=== PATIENT | male | born 1955 | race Caucasian/White ===

== ENCOUNTER 2021-09-21 18:50 | Emergency (ER) | payer MEDICARE, OTHER, SELFPAY ==
[2021-09-21 18:56] VITALS: BP 160/83; PULSE 75; RESP 16; TEMP 36.4; O2SAT 98; BMI 29.6
--- NOTE | 2021-09-21 19:04 | ED_ITS ---
Documented by User: TARI Varma 09/21/21 19:59 HPI - Extremity Problem General: Chief complaint: Extremity Injury, Lower Stated complaint: left foot injury Time Seen by Provider: 09/21/21 19:04 History of Present Illness: 66-year-old male patient comes in today for complaints of injury to the left ankle. Patient reports walking out in the yard and stepped in a hole causing his ankle to turn feeling a pop in the ankle and in the proximal tib-fib. No obvious deformity is noted. Patient does have swelling to the ankle. Patient is able to lift leg off the table without difficulty. Patient does not tolerate weightbearing. Patient appears in moderate pain. Patient appears nontoxic. Review of Systems General: Reports: 10 or more systems reviewed and unremarkable except in HPI and below Musc: Reports: extremity pain and extremity swelling Physical Exam Const: COMMON NORMALS: alert Resp: COMMON NORMALS: normal respiratory effort Cardio: COMMON NORMALS: regular rate RATE: regular rate Extremity: LEFT LOWER EXTREMITY: Yes lower leg (Tenderness proximal lower leg) Left lower leg: Yes inspection, Yes palpation and Yes neurovascular exam and Yes ankle joint (Bilateral swelling and tenderness moderate) Left ankle: Yes inspection, Yes palpation, Yes ROM (Unable to assess due to pain) and Yes neurovascular exam Neuro: SENSORIUM/ORIENTATION: Yes alert Course ED course: 1952, reviewed x-ray with Dr. Dick who agreed with plan for splinting and patient to follow-up with orthopedic surgeon for further treatment. Vital Signs: Vital signs: Vital Signs Temperature 97.6 F 09/21/21 18:56 Pulse Rate 75 09/21/21 18:56 Respiratory Rate 16 09/21/21 18:56 Blood Pressure 160/83 09/21/21 18:56 Pulse Oximetry 98 09/21/21 18:56 Oxygen Delivery Me thod 09/21/21 18:56 MDM - Extremity (Nontraumatic) Medical Decision Making Patient comes in today for injury to the left lower leg. Patient reports stepping in a hole and rolling his ankle and feeling a pop. On exam there is some swelling to bilateral ankle areas. Distal pulses and sensation are intact. Differential diagnosis includes but not limited to fracture, sprain, dislocation. X-ray of the tib-fib and the ankle noted a transverse fracture of the distal tibia going into the joint. Reviewed x-ray with patient and with Dr. Dick who agreed to plan for splinting and follow-up with orthopedic surgeon. Patient reported understanding of care plan and need for follow-up or return to the ER for worsening symptoms. Lab Data Radiology Impressions Ankle X-Ray 09/21/21 19:05 IMPRESSION: 1. Distal tibial metaphyseal oblique minimally displaced fracture. 2. Distal Achilles tendon degenerative calcification. 3. Small calcified heel spur. 4. Mild soft tissue swelling about the ankle. Tibia/Fibula X-Ray 09/21/21 19:05 IMPRESSION: No acute findings. Discharge Plan Discharge Patient Disposition: Home Clinical Impression: Fracture of distal end of left tibia Qualifiers: Encounter type: initial encounter Fracture type: closed Fracture morphology: other fracture Qualified Code(s): S82.392A - Other fracture of lower end of left tibia, initial encounter for closed fracture Condition: Stable Prescriptions: New hydrocodone-acetaminophen 5-325 mg tablet 1 tab PO Q6H PRN (Reason: pain (scale score 7-10)) Qty: 14 0RF Discharge Orders: Discharge ED (Routine); Ordered 09/21/21 Ordered By: Carlos Gonzalez Discharge Diet: Usual diet Discharge Activity: Increase activity as tolerated Patient Instructions: Ankle Fracture (ED) Activity Restrictions/Additional Instructions: Keep splint clean and dry. Use crutches and maintain nonweightbearing to left lower extremity. Use acetaminophen and ibuprofen to control pain. Use hydrocodone for severe pain. Drink plenty of water with medications. Case management will contact you Wednesday or Wednesday with follow-up appointment with orthopedist. The orthopedist follow-up appointment should be within the next week. Try to elevate extremity is much as possible to help control swelling. Use ice to the leg for further comfort. Return to the ER for new concerns or worsening symptoms such as increased redness and swelling, uncontrolled pain, fever greater than 100.4. Coding Level of Care Code ED Rivet Machine Operator for [place] Fwd Exam Expanded Problem Focused Documented by User: Jai Dick MD 09/21/21 20:35 HPI - Extremity Problem General: Chief complaint: Extremity Injury, Lower Stated complaint: left foot injury Time Seen by Provider: 09/21/21 19:04 Course Vital Signs: Vital signs: Vital Signs Temperature 97.6 F 09/21/21 18:56 Pulse Rate 75 09/21/21 18:56 Respiratory Rate 16 09/21/21 18:56 Blood Pressure 160/83 09/21/21 18:56 Pulse Oximetry 98 09/21/21 18:56 Oxygen Delivery Me thod 09/21/21 18:56 MDM - Extremity (Nontraumatic) Medical Decision Making Patient comes in today for injury to the left lower leg. Patient reports stepping in a hole and rolling his ankle and feeling a pop. On exam there is some swelling to bilateral ankle areas. Distal pulses and sensation are intact. Differential diagnosis includes but not limited to fracture, sprain, dislocation. X-ray of the tib-fib and the ankle noted a transverse fracture of the distal tibia going into the joint. Reviewed x-ray with patient and with Dr. Dick who agreed to plan for splinting and follow-up with orthopedic surgeon. Patient reported understanding of care plan and need for follow-up or return to the ER for worsening symptoms. I reviewed this case along with the x-ray image with midlevel. Did recommend splinting and orthopedic follow-up he does not require reduction. Lab Data Radiology Impressions Ankle X-Ray 09/21/21 19:05 IMPRESSION: 1. Distal tibial metaphyseal oblique minimally displaced fracture. 2. Distal Achilles tendon degenerative calcification. 3. Small calcified heel spur. 4. Mild soft tissue swelling about the ankle. Tibia/Fibula X-Ray 09/21/21 19:05 IMPRESSION: No acute findings. Discharge Plan Discharge Patient Disposition: Home Clinical Impression: Fracture of distal end of left tibia Qualifiers: Encounter type: initial encounter Fracture type: closed Fracture morphology: other fracture Qualified Code(s): S82.392A - Other fracture of lower end of left tibia, initial encounter for closed fracture Condition: Stable Prescriptions: New hydrocodone-acetaminophen 5-325 mg tablet 1 tab PO Q6H PRN (Reason: pain (scale score 7-10)) Qty: 14 0RF Discharge Orders: Discharge ED (Routine); Ordered 09/21/21 Ordered By: Carlos Gonzalez Discharge Diet: Usual diet Discharge Activity: Increase activity as tolerated Patient Instructions: Ankle Fracture (ED) Activity Restrictions/Additional Instructions: Keep splint clean and dry. Use crutches and maintain nonweightbearing to left lower extremity. Use acetaminophen and ibuprofen to control pain. Use hydrocodone for severe pain. Drink plenty of water with medications. Case management will contact you Wednesday or Wednesday with follow-up appointment with orthopedist. The orthopedist follow-up appointment should be within the next week. Try to elevate extremity is much as possible to help control swelling. Use ice to the leg for further comfort. Return to the ER for new concerns or worsening symptoms such as increased redness and swelling, uncontrolled pain, fever greater than 100.4. Coding Level of Care Code ED Rivet Machine Operator for [place] Fwd Exam Expanded Problem Focused
--- NOTE | 2021-09-21 19:05 | XRR_ITS ---
PROCEDURE INFORMATION: Exam: XR Left Tibia and Fibula Exam date and time: 09/21/2021 7:16 PM Age: 66 years old Clinical indication: Injury or trauma; Fall; Blunt trauma; Lower leg; Left TECHNIQUE: Imaging protocol: Radiologic exam of the Left tibia and fibula. Views: 2 views. COMPARISON: No relevant prior studies available. FINDINGS: Bones/joints: Normal. Soft tissues: Normal. XR/XR tibia fibula LT 2V [id number] IMPRESSION: No acute findings.
--- NOTE | 2021-09-21 19:05 | XRR_ITS ---
PROCEDURE INFORMATION: Exam: XR Left Ankle Exam date and time: 09/21/2021 7:19 PM Age: 66 years old Clinical indication: Injury or trauma; Fall; Blunt trauma; Ankle; Left TECHNIQUE: Imaging protocol: Radiologic exam of the Left ankle. Views: 3 or more views. COMPARISON: CR XR tibia fibula LT 2V [id number] 09/21/2021 7:16 PM FINDINGS: Bones/joints: Distal tibial metaphyseal oblique minimally displaced fracture. Distal Achilles tendon degenerative calcification. Small calcified heel spur. Soft tissues: Mild soft tissue swelling about the ankle. XR/XR ankle LT min 3V* [id number] IMPRESSION: 1. Distal tibial metaphyseal oblique minimally displaced fracture. 2. Distal Achilles tendon degenerative calcification. 3. Small calcified heel spur. 4. Mild soft tissue swelling about the ankle.
[2021-09-21] MEDS: HYDROcodone-acetaminophen 10-325 mg Tablet 1 TAB PO (19:09)
--- NOTE | 2021-09-21 20:35 | PC.NURSE ---
Applied posterior splint to left lower leg, pt requested hydrocodone to take home for tonight until pharmacy can fill prescription tomorrow, ntfd provider of request
[2021-09-21] MEDS: HYDROcodone-acetaminophen 7.5-325 mg Tablet 1 TAB PO (20:40)
--- NOTE | 2021-09-21 20:40 | PC.NURSE ---
1 [place] 7.5/325 given to patient to take home for pain control tonight
--- NOTE | 2021-09-24 08:34 | DCPLANNER ---
Addendum entered by Chasity Vila 09/26/21 13:10: Patient had a follow up appointment scheduled for 09.23.[address] Zhang at ortho - patient did attend appointment. Original Note: alterations manager had message to schedule a followup appointment for patient with ortho. alterations manager sent patients information to the front office staff at ortho. Patients information will be printed and reviewed. Clinic will call patient with appointment information.
== END 2021-09-21 20:43 | disposition home or self-care (01) ==
PROVIDERS: Emergency Provider Nurse Practitioner Family
DX: S82.392A Other fracture of lower end of left tibia, initial encounter for closed fracture (principal); X50.1XXA Overexertion from prolonged static or awkward postures, initial encounter
CPT/HCPCS: 29515; 73590; 73610; 99283; E0114

== ENCOUNTER 2021-09-23 16:08 | Outpatient (CLI) | payer MEDICARE, OTHER, SELFPAY | END 2021-09-23 16:09 | disposition home or self-care (01) | LOC: SPT 16:09 | PROVIDERS: Visit Provider Podiatrist Foot & Ankle Surgery | DX: Z46.89 Encounter for fitting and adjustment of other specified devices (principal); S82.872D Displaced pilon fracture of left tibia, subsequent encounter for closed fracture with routine healing; X58.XXXD Exposure to other specified factors, subsequent encounter; S82.875A Nondisplaced pilon fracture of left tibia, initial encounter for closed fracture; W19.XXXA Unspecified fall, initial encounter; M25.572 Pain in left ankle and joints of left foot | CPT/HCPCS: 97760; 99204; L4361 ==

== ENCOUNTER 2021-09-24 08:05 | Outpatient (CLI) | payer MEDICARE, OTHER, SELFPAY ==
--- NOTE | 2021-09-24 08:30 | CT_ITS ---
WS: [id number] CT LEFT ANKLE, NONCONTRAST, 3-D IMAGING. HISTORY: surgical planning Technique: All CT scans at [facility] use at least one of these dose optimization techniques: automated exposure control; mA and/or kV adjustment per patient size (includes targeted exams where dose is matched to clinical indication); or iterative reconstruction. DLP: 171.32 mGy.cm COMPARISON: LEFT ankle radiographs 09/21/2021 Mildly oblique, nondisplaced fracture extends 6.8 cm from the distal tibia to the tibiotalar articula r surface. Fracture extends along the medial posterior distal tibial diaphysis and extends slightly o blique to the midline of the tibia. No widening of the ankle mortise. There is an additional nondispl aced posterior malleolus fracture. There is a small loose body measuring 5 mm in the posterior tibial fibular articulation. This does appear to be acute fracture fragment. There are additional more staff electronic warfare officer dagoberto appearing well-circumscribed osseous fragments at the medial malleolus. There is probably an reid tional transverse fracture at the medial malleolus which is nondisplaced. The distal fibula is intact. No talar or calcaneal fracture. Posterior calcaneal process is normal. H eavy calcification in the distal Achilles tendon and also at the site of the plantar aponeurosis. CT/CT ankle LT wo con* [id number] IMPRESSION: 1. Oblique, nondisplaced distal tibial fracture extends to the tibiotalar join t space. 2. Additional nondisplaced posterior malleolus fracture. 3. Small 5 mm loose body associated with the posterior malleolus fracture. Fra gment extends into the adjacent tibiofibular articulation. 4. Additional nondisplaced oblique transverse fracture medial malleolus. There are additional well circumscribed remote fractures at the medial malleolus als o.
== END 2021-09-24 08:06 | disposition home or self-care (01) ==
LOC: RAD 08:05
PROVIDERS: PCP Family Medicine; Visit Provider Podiatrist Foot & Ankle Surgery
DX: S82.55XA Nondisplaced fracture of medial malleolus of left tibia, initial encounter for closed fracture (principal); X58.XXXA Exposure to other specified factors, initial encounter
CPT/HCPCS: 73700

== ENCOUNTER 2021-09-26 07:18 | Day surgery (SDC) | payer MEDICARE, OTHER, SELFPAY ==
[2021-09-25 15:10] VITALS: BMI 29.6
[2021-09-26] VITALS (7 sets, daily range): BP systolic 108–149; BP diastolic 67–79; PULSE 65–85; RESP 12–20; TEMP 36.3–36.7; O2SAT 93–97
--- NOTE | 2021-09-26 | SCC_ITS ---
Procedure done: Open reduction internal fixation left pilon fracture. CPT code 24441 8 seconds of fluoroscopic guidance, for a cumulative dose of 0.180 mGy, was provided to Dr. Zhang by the radiology department. C-arm images of the LEFT ankle were saved for the patient's permanent record. [facility]
--- NOTE | 2021-09-26 06:32 | W.PM.OPSUD ---
Surgery/Procedure H&P Update DATE OF PROCEDURE: September 26, 2021 DATE H&P PERFORMED: 09/23/21 CHANGES TO PREVIOUS DOCUMENTATION: None PREOP DIAGNOSIS: Left pilon fracture PRIMARY INDICATION FOR PROCEDURE: Left pilon fracture PLANNED PROCEDURE: Operation Date: 09/26/21 08:50 Proposed Procedures p Open reduction internal fixation left pilon fracture 34761,S82.872(Left) - Marcos Zhang DPM
--- NOTE | 2021-09-26 07:50 | P.ANESASSM_ITS ---
Pre-Anesthetic Assessment Height/Weight: Height 1.73 m Weight 88.451 kg Temp Pulse Resp BP Pulse Ox O2 Del Method 97.3 F L 65 16 149/68 97 09/26/21 07:38 09/26/21 07:38 09/26/21 07:38 09/26/21 07:38 09/26/21 07:38 09/26/21 07:38 Preop Diagnosis: Left pilon fracture Operation Date: 09/26/21 08:50 Proposed Procedures p Open reduction internal fixation left pilon fracture 05963,S82.872(Left) - Marcos Zhang DPM Familial anesthetic complications: None Was Beta Yousuf taken within 24 hours: Yes Was Clonidine taken within 24 hours: N/A Last intake: Intake Last Liquid Date 09/25/21 Last Liquid Time 10:00 Last Solid Date 09/25/21 Last Solid Time 19:00 Social No alcohol and No tobacco Exam alert, oriented x 3, clear to auscultation bilaterally and regular rate & rhythm Airway Mallampati: Class III Dentition: full CV/HEM Hypertension Metabolic Diabetes Mellitus and Hyperlipidemia Neuropsych cognitive dysfunction per patient's Anesthetic Plan ASA status: 3 Anesthesia: General and Regional (specify below) (popliteal) Risk of > 500 ml blood loss (7ml/kg in children): No Medications/Allergies Home Medications Medication Instructions Recorded Confirmed Last Taken Type hydrocodone 5 mg-acetaminophen 325 1 tab PO Q6H PRN pain (scale score 09/21/21 09/25/21 Unknown Rx mg tablet 7-10) #14 tabs camboot to left #1 ea 09/23/21 09/23/21 Unknown Rx hydrocodone 7.5 mg-acetaminophen 1 tab PO Q4H PRN pain 7 days #20 09/23/21 09/25/21 Unknown Rx 325 mg tablet tabs carvedilol 25 mg tablet 25 mg PO BID 09/25/21 09/26/21 09/26/21 History duloxetine 60 mg capsule,delayed 60 mg PO BID 09/25/21 09/26/21 09/25/21 History release dutasteride 0.5 mg capsule 0.5 mg PO DAILY 09/25/21 09/26/21 09/25/21 History (Avodart) empagliflozin 25 mg tablet 25 mg PO DAILY 09/25/21 09/26/21 09/25/21 History (Jardiance) glipizide 10 mg tablet 10 mg PO BID 09/25/21 09/26/21 09/25/21 History hydroxyzine pamoate 25 mg capsule 25 - 75 mg PO DAILY PRN Anxiety 09/25/21 09/26/21 09/25/21 History pravastatin 40 mg tablet 40 mg PO DAILY 09/25/21 09/25/21 Unknown History tamsulosin 0.4 mg capsule 0.4 mg PO BID 09/25/21 09/25/21 Unknown History oxycodone-acetaminophen 10 mg-325 1 tab PO Q6H PRN pain 7 days #28 09/26/21 Unknown Rx mg tablet (Percocet) tabs Allergies Allergy/AdvReac Type Severity Reaction Status Date / Time metoclopramide [From Reglan] Allergy ADR-Anxiety Verified 09/25/21 14:59 PFS Anesthesia Social History (Updated 09/25/21 @ 14:56 by Lakshmi Montague) Smoking and tobacco status: former smoker Quit status (tobacco): has quit using tobacco Second hand smoke exposure: No Smoking risk assessment/counseling performed?: No Data Anesthesia Cardiac Studies: 2 No Data to Display
[2021-09-26 07:51] LABS: Glucose Point of Care 139 mg/dL (70-110)
[2021-09-26] MEDS: CELEcoxib 200 mg Capsule 400 MG PO (07:55)
[2021-09-26] MEDS: gabapentin 300 mg Capsule PO (07:55)
[2021-09-26] MEDS: sodium chloride 0.9% 1,000 ML 30 ML IV (07:56)
--- NOTE | 2021-09-26 08:10 | ANES.PROC ---
Anesthesia Procedures Procedure/Date: 09/26/21 Nerve Block ^: Nerve Block 1: Main Anesthesia: general anesthesia Time Out Performed: Yes Consent: requested by attending/covering physician, from patient, risks and benefits reviewed and patient agrees to proceed Nerve block location: popliteal (L) Anesthesia monitors applied: pulse oximetry, EKG and BP cuff Nerve block position: supine Anesthetic Used: ropivicaine 0.5% (30 ml) and with decadron (4 mg) Ultrasound used to: recognize landmarks Nerve Stimulator Used?: No Interscalene/Femoral BLK: 4 stimuplex 21 g needle used for position and inplane approach, visualize local anesthetic spread and no vascular puncture identified Injection: neg aspiration of heme Patient Tolerated Procedure: well and no complications Complications: none
--- NOTE | 2021-09-26 08:44 | PM.OP ---
Operative Report Date of procedure: September 26, 2021 Pre-op diagnosis: Left pilon fracture of the distal tibia Post-op diagnosis: Left pilon fracture of the distal tibia Procedure done: Open reduction internal fixation left pilon fracture. CPT code 83968 Implants: [place] 28 Specimens removed/disposition: 0 Pathology: 0 Surgeon: Marocs Zhang D.P.M. 51 IV fluids: 0 Urine output: 0 Complications: None Brief History: Patient fell while shoveling dirt at home date of injury 09/21/2021. CT scan significant for comminuted fracture of the distal tibial plafond and and oblique intra-articular fracture through the distal tibia consistent with pilon fracture. Given the extent of fracture pattern and comminution recommended stabilization with open reduction internal fixation of the left distal tibia. Risks include but are not limited to pain, bleeding, numbness, infection, hardware irritation, hardware failure, delayed union, malunion and nonunion. There is also a high potential for posttraumatic arthritis as a result of this intra-articular injury. Patient may require advanced bracing and further surgical invention down the road. Also risk associate with anesthesia, heart attack, stroke, and deep vein thrombosis. Patient is agreeable wishes to proceed. Has been n.p.o. since midnight. Popliteal block performed per anesthesia preoperatively. Initialed left lower extremity preoperatively, informed consent by patient and myself. Patient's is present. No guarantees written, expressed or implied. Procedure: Under mild sedation the patient was brought to the operating room and placed on the operating table in supine position. A timeout was performed. Anesthesia was then administered by the anesthesia service. Popliteal block was performed per anesthesia preoperatively this was greatly appreciated. Saphenous nerve block preoperative with 3 cc of 0.25% Marcaine plain also performed by myself. Well-padded pneumatic tourniquet applied to the left high thigh. The left lower extremity was then scrubbed, prepped and draped utilizing normal aseptic technique. The left foot and ankle were exanguinated with a Esmarch bandage and the tourniquet inflated to 250 mmHg. Attention was directed to the medial aspect of the left medial malleolus and distal tibia where a linear longitudinal incision was was made through skin with #15 blade. Dissection carried down through subcutaneous tissue to the layer of periosteum utilizing a combination of sharp and blunt technique. Care was taken to retract and preserve neurovascular and tendinous structures. All bleeders were ligated and cauterized as necessary. Periosteal incision was made followed by curettage of the fracture fragment of its hematoma this was flushed with saline solution followed by reduction and fixation utilizing standard AO technique employing a [place] 28 distal medial anatomic plate with locking screws. The ankle mortise was noted to be congruent and the tibial plafond congruent with intraoperative fluoroscopy in all 3 standard views and excellent placement of hardware not violating the joint. Intraoperatively the fracture was stabilized and noted to be excellent with great bone to hardware interface. The incision was then flushed with copious amounts of sterile saline solution. Smooth range of motion of the ankle mortise was appreciated intraoperatively without crepitus. The incision was then closed in a layered fashion with 2-0 Vicryl at periosteum. 3-0 Vicryl at subcutaneous tissue and skin candelario. The incision was then dressed with Adaptic, sterile 4 x 4, Kerlix and Clifford wrap followed by application of cam boot. Tourniquet was deflated and a prompt hyperemic response was noted to the distal digits of the left foot. Patient tolerated the procedure and anesthesia well and was transferred to the PACU with vital signs stable and vascular status intact. Following a period of postoperative monitoring he will be discharged home is to remain strict nonweightbearing, he is utilizing crutches and a wheelchair. He is to remain immobilized with a cam boot at all times. He is to keep the surgical dressings clean dry and intact until his follow-up visit in podiatry clinic next Wednesday. Advised once daily 81 mg aspirin to be taken starting the morning after surgery to help potentially reduce the risk of deep vein thrombosis. He was provided a prescription for oxycodone to be taken judiciously as needed for pain every 4-6 hours.
--- NOTE | 2021-09-26 08:47 | XR_ITS ---
WS: [id number] XR foot LT min 3V* [id number] REASON FOR EXAM: post op FINDINGS: Mild narrowing of the first MP joint space with mild subchondral sclerosis and osteophytosis. Remainder of the joints of the left forefoot are unremarkable. No fracture or periosteal reaction of the phalanges or metatarsals. The Lisfranc, intertarsal, and Lisfranc joints demonstrate mild narrowing and subchondral sclerosis. No focal bone abnormality in the midfoot. The subtalar joint is intact and without significant abnormality. The talus and calcaneus are intact. Large calcaneal Achilles and plantar enthesophytes. 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 No acute abnormality identifie d.
[2021-09-26] MEDS: ceFAZolin 2,000 MG in sodium chloride 0.9% (plus) 50 ML 100 MG IV (08:56)
--- NOTE | 2021-09-26 14:18 | ANE.PACU2 ---
Inpatient post-anesthesia follow up: Airway intact: Yes Vital signs: Temperature 97.9 F Pulse Rate 85 Respiratory Rate 20 Blood Pressure 138/79 Pulse Oximetry 93 Oxygen Delivery Me thod Room Air Oxygen Flow Rate 6 Fraction of Inspir ed Oxygen Hydration adequate: Yes Nausea and vomiting: No Pain level: 1 Mental status: Baseline
== END 2021-09-26 11:30 | disposition home or self-care (01) ==
LOC: OR 07:26
PROVIDERS: PCP Family Medicine; Visit Provider Podiatrist Foot & Ankle Surgery
PROC: (CPT 27827; principal; 2021-09-26 08:40)
DX: S82.872A Displaced pilon fracture of left tibia, initial encounter for closed fracture (principal); W01.0XXA Fall on same level from slipping, tripping and stumbling without subsequent striking against object, initial encounter; I10 Essential (primary) hypertension; E11.9 Type 2 diabetes mellitus without complications; E78.5 Hyperlipidemia, unspecified; Z87.891 Personal history of nicotine dependence
CPT/HCPCS: 27827; 36416; 73610; 73630; 76000; 82962; C1713; J1100; J2405; J2704; J2795; J3010; J3490; J7030

== ENCOUNTER → 2021-10-03 08:56 | Outpatient (BNVA) | payer MEDICARE, OTHER, SELFPAY | PROVIDERS: PCP Family Medicine; Visit Provider Podiatrist Foot & Ankle Surgery | DX: Z98.890 Other specified postprocedural states (principal) | CPT/HCPCS: 73590 ==

== ENCOUNTER → 2021-10-09 14:00 | Outpatient (BNVA) | payer MEDICARE, OTHER, SELFPAY | PROVIDERS: PCP Family Medicine; Visit Provider Podiatrist Foot & Ankle Surgery | DX: Z98.890 Other specified postprocedural states (principal) | CPT/HCPCS: 29515; 73590; 99024 ==

== ENCOUNTER → 2021-10-16 10:32 | Outpatient (BNVA) | payer MEDICARE, OTHER, SELFPAY | PROVIDERS: PCP Family Medicine; Visit Provider Podiatrist Foot & Ankle Surgery | DX: Z98.890 Other specified postprocedural states (principal); S82.872A Displaced pilon fracture of left tibia, initial encounter for closed fracture; X58.XXXA Exposure to other specified factors, initial encounter | CPT/HCPCS: 29580; 99024 ==

== ENCOUNTER → 2021-10-23 16:05 | Outpatient (BNVA) | payer MEDICARE, OTHER, SELFPAY | PROVIDERS: PCP Family Medicine; Visit Provider Podiatrist Foot & Ankle Surgery | DX: Z98.890 Other specified postprocedural states (principal); S82.392D Other fracture of lower end of left tibia, subsequent encounter for closed fracture with routine healing; W01.0XXD Fall on same level from slipping, tripping and stumbling without subsequent striking against object, subsequent encounter | CPT/HCPCS: 99024 ==

== ENCOUNTER → 2021-11-06 14:00 | Outpatient (BNVA) | payer MEDICARE, OTHER, SELFPAY | PROVIDERS: PCP Family Medicine; Visit Provider Podiatrist Foot & Ankle Surgery | DX: Z98.890 Other specified postprocedural states (principal); S82.392D Other fracture of lower end of left tibia, subsequent encounter for closed fracture with routine healing; X58.XXXD Exposure to other specified factors, subsequent encounter | CPT/HCPCS: 73610; 99024 ==

== ENCOUNTER → 2021-11-11 08:26 | Outpatient (BNVA) | payer MEDICARE, OTHER, SELFPAY | PROVIDERS: PCP Family Medicine; Visit Provider Family Medicine | DX: E78.5 Hyperlipidemia, unspecified (principal); I10 Essential (primary) hypertension; E11.9 Type 2 diabetes mellitus without complications | CPT/HCPCS: 80053; 80061; 83036; 85025 ==

== ENCOUNTER 2021-11-19 07:34 | Outpatient (RCR) | payer MEDICARE, OTHER, SELFPAY | END 2021-12-15 23:59 | disposition home or self-care (01) | LOC: SPT 07:34 | PROVIDERS: PCP Family Medicine; Visit Provider Podiatrist Foot & Ankle Surgery | DX: S82.872D Displaced pilon fracture of left tibia, subsequent encounter for closed fracture with routine healing (principal); X58.XXXD Exposure to other specified factors, subsequent encounter | CPT/HCPCS: 97110; 97161 ==

== ENCOUNTER → 2021-11-20 14:47 | Outpatient (BNVA) | payer MEDICARE, OTHER, SELFPAY | PROVIDERS: PCP Family Medicine; Visit Provider Podiatrist Foot & Ankle Surgery | DX: Z98.890 Other specified postprocedural states (principal); S82.392D Other fracture of lower end of left tibia, subsequent encounter for closed fracture with routine healing; X58.XXXD Exposure to other specified factors, subsequent encounter; E11.9 Type 2 diabetes mellitus without complications; M25.572 Pain in left ankle and joints of left foot | CPT/HCPCS: 73610; 99024 ==

== ENCOUNTER → 2021-12-11 13:29 | Outpatient (BNVA) | payer MEDICARE, OTHER, SELFPAY | PROVIDERS: PCP Family Medicine; Visit Provider Podiatrist Foot & Ankle Surgery | DX: S82.392D Other fracture of lower end of left tibia, subsequent encounter for closed fracture with routine healing (principal); X58.XXXD Exposure to other specified factors, subsequent encounter; E11.9 Type 2 diabetes mellitus without complications; Z98.890 Other specified postprocedural states; T84.84XA Pain due to internal orthopedic prosthetic devices, implants and grafts, initial encounter; Y79.2 Prosthetic and other implants, materials and accessory orthopedic devices associated with adverse incidents | CPT/HCPCS: 99214 ==

== ENCOUNTER 2021-12-19 06:19 | Day surgery (SDC) | payer MEDICARE, OTHER, SELFPAY ==
[2021-12-18 12:21] VITALS: BMI 28.0
[2021-12-19] VITALS (7 sets, daily range): BP systolic 107–145; BP diastolic 60–76; PULSE 68–74; RESP 18; TEMP 36.3–36.7; O2SAT 93–95
--- NOTE | 2021-12-19 06:19 | W.PM.OPSUD ---
Surgery/Procedure H&P Update DATE OF PROCEDURE: December 19, 2021 DATE H&P PERFORMED: 09/23/21 PREOP DIAGNOSIS: Left pilon fracture PRIMARY INDICATION FOR PROCEDURE: Painful hardware left ankle PLANNED PROCEDURE: Operation Date: 12/19/21 08:05 Proposed Procedures p Deep hardware removal left ankle 53940,T84.84XA(Left) - Marcos Zhang DPM
--- NOTE | 2021-12-19 06:20 | PM.OP ---
Operative Report Date of procedure: December 19, 2021 Pre-op diagnosis: Painful hardware, left ankle Post-op diagnosis: Painful hardware left ankle Post-op findings: Scar tissue left ankle with significant fibrosis adjacent to implanted hardware. No acute signs of infection, no purulence or devitalized tissue. Procedure done: Deep hardware removal left ankle Implants: 2-0 Vicryl, 3-0 Vicryl, skin candelario Specimens removed/disposition: [place] 28 medial malleolus plate and screws 3.5 mm, all hardware explanted and passed from the operative field. 1 screw distally sent to microbiology for gram stain and culture to rule out infection. Pathology: None Surgeon: Marcos Zhang D.P.M. Applications Programmer: Adalberto Estimated blood loss: 5 See intra operative documentation IV fluids: 0 Urine output: 0 Complications: None Findings: As above Brief History: Pleasant 66-year-old male status post ORIF of left pilon fracture, has medial malleolus plate.? Date of operation 09/26/2021.? Please that he is having hardware pain and allergic reaction to hardware given redness and increased pain at the left medial ankle.? Would like to have hardware removed.? I assured the patient that there is no guarantee that removal of hardware may result in decreased pain.? Patient understands risk and would like to proceed.? I reviewed at length with the patient, the risks, potential complications, benefits, alternatives, expectations, and typical outcomes associated with the surgery. The risks and potential complications were explained in detail, including but not limited to infection, wound dehiscence or soft tissue complications, bleeding and hematoma, chronic edema, neuritis or nerve damage producing numbness or chronic pain, CRPS, failure to relieve pain or worsening pain, thick / painful / unsightly scar, limited motion / stiffness, malposition, delayed union, malunion, or nonunion, fracture, reaction to implants, anesthetic complications, venous thromboembolism, and deformity recurrence.? I discussed the notion of no regrets with the patient as it pertains to complications and outcomes. The patient seemed to understand the nature of the proposed care and required convalescence. They asked appropriate questions, answered to their satisfaction. They are aware no guarantees can be made as to a satisfactory outcome and they understand there may be other possible unforeseen complications or outcomes not listed here that will be treated accordingly if they arise. There were no written or implied guarantees given to the patient. They gave informed consent to proceed. Procedure: Under mild sedation the patient was brought to the operating room and remained on the gurney in supine position. A timeout was performed. Anesthesia was then administered by the anesthesia service. Local anesthesia was injected by myself consisting of a total of 30 cc in a grid like fashion subcutaneously proximal to the planned incision at the medial malleolus left ankle, 10 cc of Exparel expanded with 20 cc 0.25% Marcaine plain. Well-padded pneumatic tourniquet applied left high calf. Left lower extremity was then scrubbed, prepped and draped utilizing normal aseptic technique. Left foot was exanguinated with an Esmarch bandage and the tourniquet inflated to 250 mmHg. Attention was directed to the medial aspect of the left ankle where previous incision was identified and directly over the previous incision a #15 blade was utilized to incise skin and dissection was then carried down through subcutaneous tissue to the layer of hardware utilizing accommodation of sharp and blunt technique. Care was taken to retract and preserve neurovascular and tendinous structures. All bleeders were ligated and cauterized as necessary. All screws and the plate were removed in total, 1 screw that was more distal and corresponded to the area where patient had more erythema was sent to microbiology for gram stain and culture to rule out underlying infection. Overall healthy appearance of soft tissue, there was some excessive fibrosing adjacent to hardware. Scar tissue was excised sharply with a #15 blade and brown pickups. The incision was irrigated with copious amounts of sterile saline solution and closed in a layered fashion. Periosteum reapproximated utilizing 2-0 Vicryl, subcutaneous tissue reapproximated with 3-0 Vicryl and skin with candelario. The incision was dressed with Adaptic, sterile 4 x 4, Kerlix and Clifford wrap. New cam boot was applied. Tourniquet was then deflated and a prompt hyperemic response was noted to the distal digits of the left foot. Patient tolerated the procedure and anesthesia well and was transferred to the PACU with vital signs stable and vascular status intact. Following a period of postoperative monitoring he will be discharged home was given at home care instructions as well as follow-up.
[2021-12-19 06:52] LABS: Glucose Point of Care 148 mg/dL (70-110)
[2021-12-19] MEDS: sodium chloride 0.9% 1,000 ML 30 ML IV (07:00)
--- NOTE | 2021-12-19 07:10 | ANES.PREANE2 ---
Pre-Anesthetic Assessment Height/Weight: Height 1.75 m Weight 86.183 kg Temp Pulse Resp BP Pulse Ox O2 Del Method 97.3 F L 74 18 145/73 93 12/19/21 06:34 12/19/21 06:34 12/19/21 06:34 12/19/21 06:34 12/19/21 06:34 12/19/21 06:41 Preop Diagnosis: Painful hardware left ankle Operation Date: 12/19/21 08:05 Proposed Procedures p Deep hardware removal left ankle 58282,T84.84XA(Left) - Marcos Zhang DPM Familial anesthetic complications: none Was Beta Yousuf taken within 24 hours: Yes Was Clonidine taken within 24 hours: N/A Last intake: Intake Last Liquid Date 12/18/21 Last Liquid Time 19:00 Last Solid Date 12/18/21 Last Solid Time 19:00 Social No alcohol and No tobacco Exam alert and oriented x 3 Airway Submandibular: within normal limits Cervical ROM: within normal limits Mallampati: Class II Dentition: chipped and full History/ROS No significant history except as noted Pulmonary Sleep Apnea (cpap) CV/HEM Hypertension None reported Hepatic None reported GI None reported Metabolic Diabetes Mellitus and Hyperlipidemia [facility] None reported Neuropsych None reported Anesthetic Plan ASA status: 3 Anesthesia: Anesthesia Evaluation and MAC Medications/Allergies Home Medications Medication Instructions Recorded Confirmed Last Taken Type carvedilol 25 mg tablet 25 mg PO BID 09/25/21 12/19/21 12/19/21 History duloxetine 60 mg capsule,delayed 60 mg PO BID 09/25/21 12/11/21 12/18/21 History release dutasteride 0.5 mg capsule 0.5 mg PO DAILY 09/25/21 12/19/21 12/18/21 History (Avodart) glipizide 10 mg tablet 10 mg PO BID 09/25/21 12/19/21 12/18/21 History hydroxyzine pamoate 25 mg capsule 25 - 75 mg PO DAILY PRN Anxiety 09/25/21 12/19/21 12/18/21 History tamsulosin 0.4 mg capsule 0.4 mg PO BID 09/25/21 12/18/21 12/18/21 History Compression Socks #1 ea 11/20/21 12/11/21 Unknown Rx pravastatin 40 mg tablet 40 mg PO DAILY #30 tabs 11/27/21 12/18/21 12/18/21 Rx empagliflozin 25 mg tablet 25 mg PO DAILY #30 tabs 12/09/21 12/19/21 12/18/21 Rx (Jardiance) hydrocodone 10 mg-acetaminophen 1 tab PO Q6H PRN pain 7 days #28 12/19/21 Unknown Rx 325 mg tablet tabs Allergies Allergy/AdvReac Type Severity Reaction Status Date / Time metoclopramide [From Reglan] Allergy ADR-Anxiety Verified 12/11/21 13:37 Current Medications Generic Name Dose Route Start Last Admin Trade Name Freq PRN Reason Stop Dose Admin Sodium Chloride 1,000 mls @ 30 mls/hr 12/19/21 06:30 12/19/21 07:00 Sodium Chloride 0.9% IV 12/20/21 06:29 30 mls/hr .Q24H BRYANT Administration PFSH Anesthesia Medical History Diabetes mellitus Hyperlipidemia Hypertension Social History Smoking and tobacco status: never smoked Quit status (tobacco): has quit using tobacco Second hand smoke exposure: No Smoking risk assessment/counseling performed?: No Data Anesthesia : 12/19/21 06:49 Cardiac Studies: No Data to Display
[2021-12-19 07:13] LABS: Blood Urea Nitrogen 13 mg/dL (8-23); Calcium 9.1 mg/dL (8.5-10.5); Carbon Dioxide 21 mmol/L (22-29); Chloride 107 mmol/L (98-107); Creatinine Clr Calc Pharmacy 97.4515; Glomerular Filtration Rate 112.5 mL/min (90-130); Glucose 143 mg/dL (65-115); Osmolality Calculated 291 mOsm/kg (285-295); Sodium 139 mmol/L (136-145)
[2021-12-19] MEDS: ceFAZolin 2,000 MG in sodium chloride 0.9% (plus) 50 ML 100 MG IV (07:33)
[2021-12-19] MEDS: HYDROcodone-acetaminophen 10-325 mg Tablet 1 TAB PO (08:49)
--- NOTE | 2021-12-19 15:08 | ANE.PACU2 ---
Inpatient post-anesthesia follow up: Airway intact: Yes Vital signs: Temperature 98.0 F Pulse Rate 74 Respiratory Rate 18 Blood Pressure 140/76 Pulse Oximetry 95 Oxygen Delivery Me thod Room Air Oxygen Flow Rate Fraction of Inspir ed Oxygen Hydration adequate: Yes Nausea and vomiting: No Pain level: 1 Mental status: Baseline
== END 2021-12-19 09:08 | disposition home or self-care (01) ==
PROVIDERS: Anesthesiology; PCP Family Medicine; Visit Provider Podiatrist Foot & Ankle Surgery
PROC: (CPT 20680; principal; 2021-12-19 07:55)
DX: T84.84XA Pain due to internal orthopedic prosthetic devices, implants and grafts, initial encounter (principal); G47.30 Sleep apnea, unspecified; I10 Essential (primary) hypertension; E11.9 Type 2 diabetes mellitus without complications; E78.5 Hyperlipidemia, unspecified
CPT/HCPCS: 20680; 36416; 80048; 82962; 87070; 87075; 87205; C9290; J0690; J2704; J3010; J3490; J7030

== ENCOUNTER → 2022-01-01 14:11 | Outpatient (BNVA) | payer MEDICARE, OTHER, SELFPAY | PROVIDERS: PCP Family Medicine; Visit Provider Podiatrist Foot & Ankle Surgery | DX: Z98.890 Other specified postprocedural states (principal) | CPT/HCPCS: 99024 ==

== ENCOUNTER → 2022-01-13 12:50 | Outpatient (BNVA) | payer MEDICARE, OTHER, SELFPAY | PROVIDERS: PCP Family Medicine; Visit Provider Podiatrist Foot & Ankle Surgery | DX: Z98.890 Other specified postprocedural states (principal) | CPT/HCPCS: 99024 ==

== ENCOUNTER → 2022-01-16 08:17 | Outpatient (BNVA) | payer MEDICARE, OTHER, SELFPAY | PROVIDERS: PCP Family Medicine; Visit Provider Surgery | DX: R13.10 Dysphagia, unspecified (principal); K21.9 Gastro-esophageal reflux disease without esophagitis | CPT/HCPCS: 99203 ==

== ENCOUNTER 2022-01-30 09:26 | Day surgery (SDC) | payer MEDICARE, OTHER, SELFPAY ==
[2022-01-29 11:13] VITALS: BMI 28.0
[2022-01-30] MEDS: sodium chloride 0.9% 1,000 ML 30 ML IV (09:49)
[2022-01-30 09:51] VITALS: BP 148/76; PULSE 70; RESP 18; TEMP 36.6; O2SAT 97
[2022-01-30 09:56] LABS: Glucose Point of Care 134 mg/dL (70-110)
--- NOTE | 2022-01-30 10:50 | P.ANESASSM_ITS ---
Pre-Anesthetic Assessment Height/Weight: Height 1.75 m Weight 86.183 kg Temp Pulse Resp BP Pulse Ox O2 Del Method 97.8 F 70 18 148/76 97 01/30/22 09:51 01/30/22 09:51 01/30/22 09:51 01/30/22 09:51 01/30/22 09:51 01/30/22 09:51 Preop Diagnosis: Gerd Operation Date: 01/30/22 10:45 Proposed Procedures p EGD Dilation W/ Balloon 06046,K21.9(Not Applicable) - Ancelmo Lynn DO Familial anesthetic complications: None Was Beta Yousuf taken within 24 hours: Yes Was Clonidine taken within 24 hours: N/A Last intake: Intake Last Liquid Date 01/29/22 Last Liquid Time 21:00 Last Solid Date 01/29/22 Last Solid Time 21:00 Social No alcohol and No tobacco Exam alert, oriented x 3, clear to auscultation bilaterally and regular rate & rhythm Airway Submandibular: within normal limits Cervical ROM: within normal limits Mallampati: Class II Dentition: full History/ROS No significant history except as noted Pulmonary Sleep Apnea CV/HEM Deep Vein Thrombosis (from surgery in 2017, not on blood thinner) and Hypertension None reported Hepatic None reported GI Gastroesophageal Reflux Disease Metabolic Diabetes Mellitus [facility] None reported Neuropsych None reported Anesthetic Plan ASA status: 3 Anesthesia: Anesthesia Evaluation and MAC Risk of > 500 ml blood loss (7ml/kg in children): No Medications/Allergies Home Medications Medication Instructions Recorded Confirmed Last Taken Type carvedilol 25 mg tablet 25 mg PO BID 09/25/21 01/30/22 01/29/22 History duloxetine 60 mg capsule,delayed 60 mg PO BID 09/25/21 01/30/22 01/29/22 History release dutasteride 0.5 mg capsule 0.5 mg PO DAILY 09/25/21 01/30/22 01/29/22 History (Avodart) glipizide 10 mg tablet 10 mg PO BID 09/25/21 01/30/22 01/29/22 History hydroxyzine pamoate 25 mg capsule 25 - 75 mg PO DAILY PRN Anxiety 09/25/21 01/30/22 01/29/22 History tamsulosin 0.4 mg capsule 0.4 mg PO BID 09/25/21 01/30/22 01/29/22 History Compression Socks #1 ea 11/20/21 01/30/22 01/29/22 Rx empagliflozin 25 mg tablet 25 mg PO DAILY #30 tabs 12/09/21 01/30/22 01/29/22 Rx (Jardiance) pravastatin 40 mg tablet 40 mg PO DAILY #90 tabs 12/30/21 01/30/22 01/29/22 Rx pantoprazole 40 mg tablet,delayed 40 mg PO BID 6 weeks #84 tabs 01/16/22 01/30/22 01/29/22 Rx release (Protonix) Allergies Allergy/AdvReac Type Severity Reaction Status Date / Time metoclopramide [From Reglan] Allergy ADR-Anxiety Verified 01/30/22 09:46 Current Medications Generic Name Dose Route Start Last Admin Trade Name Freq PRN Reason Stop Dose Admin Sodium Chloride 1,000 mls @ 30 mls/hr 01/30/22 09:45 01/30/22 09:49 Sodium Chloride 0.9% IV 01/31/22 09:44 30 mls/hr .Q24H BRYANT Administration PFSH Anesthesia Medical History (Updated 01/16/22 @ 09:11 by Ancelmo Lynn DO) Achilles rupture, right Diabetes mellitus GERD (gastroesophageal reflux disease) Helicobacter pylori gastritis Hyperlipidemia Hypertension Surgical History History of ankle surgery left ankle x2 History of esophagogastroduodenoscopy (EGD) 01/08/21 Hx of Achilles tendon repair Right Hx of colonoscopy 01/2022 Social History Smoking and tobacco status: never smoked Quit status (tobacco): has quit using tobacco Second hand smoke exposure: No Smoking risk assessment/counseling performed?: No Data Anesthesia Cardiac Studies: No Data to Display
--- NOTE | 2022-01-30 11:06 | W.PM.OPSUD ---
Surgery/Procedure H&P Update DATE OF PROCEDURE: January 30, 2022 DATE H&P PERFORMED: 01/16/22 PREOP DIAGNOSIS: Gerd PLANNED PROCEDURE: Operation Date: 01/30/22 10:45 Proposed Procedures p EGD Dilation W/ Balloon 06668,K21.9(Not Applicable) - Ancelmo Lynn DO
[2022-01-30 11:26] VITALS: BP 110/61; PULSE 83; RESP 18; TEMP 36.3; O2SAT 95
[2022-01-30 11:30] VITALS: BP 133/66; PULSE 84; RESP 17; O2SAT 96
[2022-01-30 11:40] VITALS: BP 129/75; PULSE 77; RESP 17; O2SAT 95
[2022-01-30 11:46] VITALS: BP 135/78; PULSE 74; RESP 16; O2SAT 95
--- NOTE | 2022-01-30 14:36 | ANE.PACU2 ---
Inpatient post-anesthesia follow up: Airway intact: Yes Vital signs: Temperature 97.3 F Pulse Rate 74 Respiratory Rate 16 Blood Pressure 135/78 Pulse Oximetry 95 Oxygen Delivery Me thod Room Air Oxygen Flow Rate Fraction of Inspir ed Oxygen Hydration adequate: Yes Nausea and vomiting: No Pain level: 1 Mental status: Baseline
== END 2022-01-30 11:55 | disposition home or self-care (01) ==
PROVIDERS: PCP Family Medicine; Visit Provider Surgery
DX: K21.9 Gastro-esophageal reflux disease without esophagitis (principal); K22.2 Esophageal obstruction; K29.50 Unspecified chronic gastritis without bleeding; B96.81 Helicobacter pylori [H. pylori] as the cause of diseases classified elsewhere; Z86.718 Personal history of other venous thrombosis and embolism; G47.30 Sleep apnea, unspecified; E11.9 Type 2 diabetes mellitus without complications; I10 Essential (primary) hypertension
CPT/HCPCS: 36416; 43239; 43249; 82962; 88305; 88342; J2704; J7030

== ENCOUNTER → 2022-02-18 16:16 | Outpatient (BNVA) | payer MEDICARE, SELFPAY | PROVIDERS: PCP Family Medicine; Visit Provider Surgery | DX: Z09 Encounter for follow-up examination after completed treatment for conditions other than malignant neoplasm (principal); K29.70 Gastritis, unspecified, without bleeding; B96.81 Helicobacter pylori [H. pylori] as the cause of diseases classified elsewhere; K22.2 Esophageal obstruction | CPT/HCPCS: 99212 ==

== ENCOUNTER → 2022-03-30 13:11 | Outpatient (BNVA) | payer MEDICARE, SELFPAY | PROVIDERS: PCP Family Medicine; Visit Provider Podiatrist Foot & Ankle Surgery | DX: M76.72 Peroneal tendinitis, left leg (principal) | CPT/HCPCS: 99214 ==

== ENCOUNTER → 2022-05-08 07:53 | Outpatient (BNVA) | payer MEDICARE, SELFPAY | PROVIDERS: PCP Family Medicine; Visit Provider Family Medicine | DX: F32.A Depression, unspecified (principal); E11.9 Type 2 diabetes mellitus without complications; I10 Essential (primary) hypertension; E78.5 Hyperlipidemia, unspecified | CPT/HCPCS: 80053; 80061; 83036 ==

== ENCOUNTER → 2022-06-08 13:02 | Outpatient (BNVA) | payer MEDICARE, SELFPAY | PROVIDERS: PCP Family Medicine; Visit Provider Podiatrist Foot & Ankle Surgery | DX: M76.71 Peroneal tendinitis, right leg (principal); Z98.890 Other specified postprocedural states; M76.72 Peroneal tendinitis, left leg | CPT/HCPCS: 20550; J1100; J3301; J3490 ==

== ENCOUNTER → 2022-09-10 08:11 | Outpatient (BNVA) | payer MEDICARE, SELFPAY | PROVIDERS: PCP Family Medicine; Visit Provider Family Medicine | DX: I10 Essential (primary) hypertension (principal); E78.5 Hyperlipidemia, unspecified; E11.9 Type 2 diabetes mellitus without complications | CPT/HCPCS: 80053; 80061; 83036 ==

== ENCOUNTER → 2023-02-12 07:35 | Outpatient (BNVA) | payer MEDICARE, SELFPAY | PROVIDERS: PCP Family Medicine; Visit Provider Clinical Nurse Specialist Adult Health | DX: J06.9 Acute upper respiratory infection, unspecified (principal) | CPT/HCPCS: 87400; 87426 ==

== ENCOUNTER → 2023-03-18 09:49 | Outpatient (BNVA) | payer MEDICARE, SELFPAY | PROVIDERS: PCP Family Medicine; Visit Provider Family Medicine | DX: F32.A Depression, unspecified (principal); I10 Essential (primary) hypertension; E11.9 Type 2 diabetes mellitus without complications; E78.5 Hyperlipidemia, unspecified; R41.89 Other symptoms and signs involving cognitive functions and awareness; G47.33 Obstructive sleep apnea (adult) (pediatric); K22.2 Esophageal obstruction; G31.09 Other frontotemporal neurocognitive disorder; F02.80 Dementia in other diseases classified elsewhere, unspecified severity, without behavioral disturbance, psychotic disturbance, mood disturbance, and anxiety; R41.3 Other amnesia | CPT/HCPCS: 80053; 80061; 83036 ==

== ENCOUNTER → 2023-09-16 07:37 | Outpatient (BNVA) | payer MEDICARE, SELFPAY | PROVIDERS: PCP Family Medicine; Visit Provider Family Medicine | DX: I10 Essential (primary) hypertension (principal); E78.5 Hyperlipidemia, unspecified; E11.9 Type 2 diabetes mellitus without complications; R41.89 Other symptoms and signs involving cognitive functions and awareness; G31.09 Other frontotemporal neurocognitive disorder; F02.80 Dementia in other diseases classified elsewhere, unspecified severity, without behavioral disturbance, psychotic disturbance, mood disturbance, and anxiety | CPT/HCPCS: 80061; 81000; 83036; 85025 ==

== ENCOUNTER → 2023-10-19 10:50 | Outpatient (BNVA) | payer MEDICARE, SELFPAY | PROVIDERS: PCP Family Medicine; Visit Provider Psychiatry & Neurology Neurology | DX: G47.33 Obstructive sleep apnea (adult) (pediatric) (principal); F32.A Depression, unspecified; R41.3 Other amnesia; R41.89 Other symptoms and signs involving cognitive functions and awareness; I10 Essential (primary) hypertension; E78.5 Hyperlipidemia, unspecified; E55.9 Vitamin D deficiency, unspecified; R41.9 Unspecified symptoms and signs involving cognitive functions and awareness | CPT/HCPCS: 36415; 82306; 82542; 82607; 82746; 83090; 83735; 83921; 84439; 84443; 84481; 86592; 86617; 99203; 99204 ==

== ENCOUNTER → 2023-12-16 07:37 | Outpatient (BNVA) | payer MEDICARE, SELFPAY | PROVIDERS: PCP Family Medicine; Visit Provider Family Medicine | DX: R60.9 Edema, unspecified (principal) | CPT/HCPCS: 83880 ==

== ENCOUNTER → 2024-03-14 09:50 | Outpatient (BNVA) | payer MEDICARE, SELFPAY | PROVIDERS: PCP Family Medicine; Visit Provider Family Medicine | DX: E78.5 Hyperlipidemia, unspecified (principal); I10 Essential (primary) hypertension; E11.9 Type 2 diabetes mellitus without complications | CPT/HCPCS: 80053; 80061; 83036; 85025 ==

== ENCOUNTER 2024-05-07 12:45 | Emergency (ER) | payer MEDICARE, SELFPAY ==
[2024-05-07 12:50] VITALS: BP 164/88; PULSE 80; RESP 23; TEMP 36.7; O2SAT 97; BMI 29.2
--- NOTE | 2024-05-07 13:04 | W.ED.GENADLT ---
HPI - General Adult General: Chief complaint: Airway/Esophagus Foreign Body Stated complaint: food stuck in throat Time Seen by Provider: 05/07/24 12:49 History of Present Illness: 69-year-old male presents emergency department reporting that he was eating chicken and seem to get stuck in his throat. His is here with him. The patient is coughing recurrently. His says he has a terrible gag . 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 He has had EGD with balloon dilatation twice by Dr. Lynn. reports that after he was eating the chicken he felt like it got stuck in his esophagus. He threw up some chicken and thought he was getting better. However he tried to eat again and felt like he still had an obstruction. He has been able to talk but his voice has been a little hoarse. He feels like there is something tight or obstructed and the area above his suprasternal notch. He is coughing so much he cannot communicate very well. The story sounds like it is probably an esophageal obstruction with gagging and coughing but we are also considering a aspiration event or airway foreign body. On arrival, the patient can speak in between coughing and his oxygen saturations are normal. There is no stridor. Related Data Home Medications ?Medication ?Instructions ?Recorded ?Confirmed carvedilol 25 mg tablet 25 mg PO BID 05/07/24 05/07/24 dutasteride 0.5 mg capsule 0.5 mg PO DAILY 05/07/24 05/07/24 glipizide 10 mg tablet 10 mg PO BID 05/07/24 05/07/24 mirtazapine 30 mg tablet 30 mg PO QPM 05/07/24 05/07/24 pravastatin 40 mg tablet 40 mg PO DAILY 05/07/24 05/07/24 tamsulosin 0.4 mg capsule 0.4 mg PO BID 05/07/24 05/07/24 Previous Rx's ?Medication ?Instructions ?Recorded duloxetine 30 mg capsule,delayed 30 mg PO DAILY #90 caps 12/16/23 release hydroxyzine pamoate 25 mg capsule 25 - 75 mg (1 - 3 x 25 mg) PO 12/16/23 DAILY PRN Anxiety #90 caps metformin 500 mg tablet,extended 500 mg PO DAILY #30 tabs 03/28/24 release 24 hr Allergies Allergy/AdvReac Type Severity Reaction Status Date / Time metoclopramide (From Reglan) Allergy ADR-Anxiety Verified 05/07/24 13:02 Review of Systems General: Reports: 10 or more systems reviewed and unremarkable except in HPI and below PFSH ED PFSH: Medical History Obstructive sleep apnea Depression Fronto-temporal dementia Schatzki's ring Helicobacter pylori gastritis GERD (gastroesophageal reflux disease) Achilles rupture, right Diabetes mellitus Hypertension Hyperlipidemia Surgical History History of ankle surgery left ankle x2 History of esophagogastroduodenoscopy (EGD) 01/08/21 Hx of Achilles tendon repair Right Hx of colonoscopy 01/2022 Social History Smoking and tobacco/nicotine status: unknown if used tobacco/nicotine Quit status (tobacco/nicotine): has quit using Second hand smoke exposure: No Physical Exam Narrative: EXAM NARRATIVE: Frequent coughing. No stridor. Breath sounds appreciated bilaterally with no wheezing or adventitious breath sounds. Patient can speak in between coughing and is slightly hoarse. Const: COMMON NORMALS: alert and well nourished EXAM LIMITATIONS: no altered mental status HENMT: COMMON NORMALS: normocephalic, atraumatic and external ears normal HEAD & SCALP: normocephalic and atraumatic EXTERNAL EAR: Yes external ears normal MOUTH: no muffled voice Neck/C-Spine: COMMON NORMALS: no JVD GENERAL: Yes normal visual inspection and Yes trachea midline Resp: COMMON NORMALS: normal respiratory effort, No use of accessory muscles and clear to auscultation bilaterally AUSCULTATION: clear to auscultation bilaterally Cardio: COMMON NORMALS: no JVD, regular rate and regular rhythm RATE: regular rate RHYTHM: regular rhythm Neuro: COMMON NORMALS: moves all extremities, no focal motor deficits and no sensory deficits noted SENSORIUM/ORIENTATION: Yes alert SPEECH: speech normal Psych: COMMON NORMALS: cooperative Skin: COMMON NORMALS: no rashes or lesions noted, turgor normal and no jaundice GENERAL SKIN EXAM: no rashes or lesions noted and turgor normal Course Vital Signs: Vital signs: Vital Signs Temperature 98.1 F 05/07/24 12:50 Pulse Rate 80 05/07/24 12:50 Respiratory Rate 23 H 05/07/24 12:50 Blood Pressure 164/88 05/07/24 12:50 Pulse Oximetry 97 05/07/24 12:50 Oxygen Delivery Me thod Room Air 05/07/24 12:50 MDM - General Adult Medical Decision Making Suspected esophageal foreign body with obstruction. Seems less likely to be a aspiration or airway foreign body. We are going to try nitroglycerin for smooth muscle relaxation, lorazepam for anxiety, and benzocaine mucous membrane spray for his gag reflex. We will then coached him on doing swallows with warm water and positioning the neck and chest to see if we can augment his attempts to pass foreign body. UPDATE 1400 Patient's esophageal foreign body passed spontaneously before his medications. Patient was able to swallow liquids at bedside with no issue. He reports he has been having GERD symptoms increasing for the last couple weeks. He had formally been on pantoprazole and has been off of it. It has been quite a while since he has had an EGD. He has been noticing increasing symptoms. Patient needs no additional emergent procedure but I would like him to cut up his food, avoid dense meats and carbohydrates that can pack and such as rice/bread that are prone to cause problems. I have also asked him to start his pantoprazole again and follow-up with Dr. yLnn. and patient in agreement with plan. No radiology studies performed this visit Discharge Plan Discharge Patient Disposition: Home Clinical Impression: Esophageal foreign body, GERD (gastroesophageal reflux disease), Schatzki's ring Condition: Stable Prescriptions: No Action duloxetine 30 mg capsule,delayed release(DR/EC) 30 mg PO DAILY Qty: 90 3RF hydroxyzine pamoate 25 mg capsule 25 - 75 mg PO DAILY PRN (Reason: Anxiety) Qty: 90 11RF metformin 500 mg tablet extended release 24 hr 500 mg PO DAILY Qty: 30 11RF carvedilol 25 mg tablet 25 mg PO BID Rx Instructions: TAKE 1 TABLET BY MOUTH TWICE DAILY (MUST TAKE WITH A MEAL/FOOD) pravastatin 40 mg tablet 40 mg PO DAILY Rx Instructions: TAKE 1 TABLET BY MOUTH DAILY glipizide 10 mg tablet 10 mg PO BID Rx Instructions: TAKE 1 TABLET BY MOUTH TWICE DAILY tamsulosin 0.4 mg capsule 0.4 mg PO BID Rx Instructions: TAKE 1 CAPSULE BY MOUTH TWICE DAILY mirtazapine 30 mg tablet 30 mg PO QPM Rx Instructions: TAKE 1 TABLET BY MOUTH IN THE EVENING dutasteride 0.5 mg capsule 0.5 mg PO DAILY Rx Instructions: TAKE 1 CAPSULE BY MOUTH DAILY Discharge Orders: Discharge ED (Routine); Ordered 05/07/24 Ordered By: Driss Rojas Referrals: Ancelmo Lynn DO [Physician] - Panda Whitney MD [Primary Care Provider] - Patient Instructions: Esophageal Foreign Body (ED), Pain Management Activity Restrictions/Additional Instructions: Take pantoprazole daily. Read handout about esophageal foreign body. Call Dr. Lynn and set up a consultation about your symptoms. You will likely need a repeat EGD. Return to the emergency department if you have any new or urgent symptoms. 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
[2024-05-07 14:18] VITALS: BP 148/82; PULSE 72; RESP 20; O2SAT 93
== END 2024-05-07 14:19 | disposition home or self-care (01) ==
PROVIDERS: Emergency Provider Emergency Medicine; PCP Family Medicine
DX: T18.128A Food in esophagus causing other injury, initial encounter (principal); W44.F3XA Food entering into or through a natural orifice, initial encounter; K21.9 Gastro-esophageal reflux disease without esophagitis; K22.2 Esophageal obstruction; Z79.84 Long term (current) use of oral hypoglycemic drugs; E78.5 Hyperlipidemia, unspecified; E11.9 Type 2 diabetes mellitus without complications; I10 Essential (primary) hypertension
CPT/HCPCS: 36415; 99283; J9999

== ENCOUNTER → 2024-05-16 09:11 | Outpatient (BNVA) | payer MEDICARE, SELFPAY | PROVIDERS: PCP Family Medicine; Visit Provider Surgery | DX: K22.2 Esophageal obstruction (principal) | CPT/HCPCS: 99214 ==

== ENCOUNTER 2024-05-24 10:14 | Day surgery (SDC) | payer MEDICARE, SELFPAY ==
[2024-05-24 10:30] VITALS: BP 164/93; PULSE 55; RESP 18; TEMP 36.6; O2SAT 97; BMI 29.6
[2024-05-24 10:40] LABS: Glucose Point of Care 226 mg/dL (70-110)
[2024-05-24] MEDS: sodium chloride 0.9% 250 ML 30 ML IV (10:42)
--- NOTE | 2024-05-24 10:45 | ANES.PREANE2 ---
Pre-Anesthetic Assessment Height/Weight: Height 5 ft 8 in Weight 195 lb Temp Pulse Resp BP Pulse Ox O2 Del Method 97.8 F 55 L 18 164/93 97 Room Air 05/24/24 10:30 05/24/24 10:30 05/24/24 10:30 05/24/24 10:30 05/24/24 10:30 05/24/24 10:30 Preop Diagnosis: Schatzki's ring Operation Date: 05/24/24 11:40 Proposed Procedures p EGD Dilation W/ Balloon 46278, K22.2(Not Applicable) - Yusuf Chavez MD Was Beta Yousuf taken within 24 hours: Yes Was Clonidine taken within 24 hours: N/A Last intake: Intake Last Liquid Date 05/23/24 Last Liquid Time 18:00 Last Solid Date 05/23/24 Last Solid Time 21:00 Social No alcohol and No tobacco Quit smoking 30 years ago Exam alert, oriented x 3, clear to auscultation bilaterally and regular rate & rhythm Airway Submandibular: within normal limits Cervical ROM: within normal limits Mallampati: Class II Dentition: full Anesthetic Plan ASA status: 3 Anesthesia: MAC Other: No prior issues with anesthesia NPO since yesterday History of hypertension on carvedilol. Preop BP 164/93 JUHI, no treatment Frontotemporal dementia GERD with Schatzki's ring Type 2 diabetes, no insulin. Preop BS 226 will recheck and treat if needed Plan for MAC anesthesia Medications/Allergies Home Medications ?Medication ?Instructions ?Recorded ?Confirmed ?Last Taken ?Type duloxetine 30 mg capsule,delayed 30 mg PO DAILY #90 caps 12/16/23 05/24/24 05/23/24 Rx release hydroxyzine pamoate 25 mg capsule 25 - 75 mg (1 - 3 x 25 mg) PO 12/16/23 05/24/24 05/23/24 Rx DAILY PRN Anxiety #90 caps metformin 500 mg tablet,extended 500 mg PO DAILY #30 tabs 03/28/24 05/24/24 05/23/24 Rx release 24 hr carvedilol 25 mg tablet 25 mg PO BID 05/07/24 05/24/24 05/24/24 History dutasteride 0.5 mg capsule 0.5 mg PO DAILY 05/07/24 05/24/24 05/23/24 History glipizide 10 mg tablet 10 mg PO BID 05/07/24 05/24/24 05/23/24 History mirtazapine 30 mg tablet 30 mg PO QPM 05/07/24 05/24/24 05/23/24 History pravastatin 40 mg tablet 40 mg PO DAILY 05/07/24 05/24/24 05/23/24 History tamsulosin 0.4 mg capsule 0.4 mg PO BID 05/07/24 05/24/24 05/22/24 History Allergies Allergy/AdvReac Type Severity Reaction Status Date / Time metoclopramide (From Reglan) Allergy ADR-Anxiety Verified 05/24/24 10:33 Current Medications Generic Name Dose Route Start Last Admin Trade Name Freq PRN Reason Stop Dose Admin Sodium Chloride 250 mls @ 30 mls/hr 05/24/24 10:45 05/24/24 10:42 Sodium Chloride 0.9% IV 30 mls/hr .Q8H20M BRYANT Administration PFSH Anesthesia Medical History Obstructive sleep apnea Depression Fronto-temporal dementia Schatzki's ring Helicobacter pylori gastritis GERD (gastroesophageal reflux disease) Achilles rupture, right Diabetes mellitus Hypertension Hyperlipidemia Surgical History History of ankle surgery left ankle x2 History of esophagogastroduodenoscopy (EGD) 01/08/21 Hx of Achilles tendon repair Right Hx of colonoscopy 01/2022 Social History Smoking and tobacco/nicotine status: unknown if used tobacco/nicotine Quit status (tobacco/nicotine): has quit using Second hand smoke exposure: No Data Anesthesia Cardiac Studies: No Data to Display
--- NOTE | 2024-05-24 10:45 | W.PM.OPSUD ---
Surgery/Procedure H&P Update DATE OF PROCEDURE: May 24, 2024 DATE H&P PERFORMED: 05/16/24 H&P UPDATE INFORMATION: I have reviewed H&P completed within last 30 days, I have examined patient prior to procedure, No changes to prior documentation, Changes to prior documentation as noted here and Risks and benefits of the procedure reviewed PLANNED PROCEDURE: Operation Date: 05/24/24 11:40 Proposed Procedures p EGD Dilation W/ Balloon [id number], K22.2(Not Applicable) - Yusuf Chavez MD
[2024-05-24 11:10] VITALS: BP 132/77; PULSE 78; RESP 16; TEMP 37; O2SAT 95
[2024-05-24 11:25] VITALS: BP 130/83; PULSE 71; RESP 16; O2SAT 96
[2024-05-24 11:31] LABS: Glucose Point of Care 198 mg/dL (70-110)
--- NOTE | 2024-05-24 11:57 | SUR.PHASEII ---
Notified ANDRES Glover of 198 post-op blood glucose. Adalberto instructed to proceed with discharge.
--- NOTE | 2024-05-24 11:58 | ANE.PACU2 ---
Inpatient post-anesthesia follow up: Airway intact: Yes Vital signs: Temperature 98.6 F Pulse Rate 71 Respiratory Rate 16 Blood Pressure 130/83 Pulse Oximetry 96 Oxygen Delivery Me thod Room Air Oxygen Flow Rate Fraction of Inspir ed Oxygen Hydration adequate: Yes Nausea and vomiting: No Pain level: 1 Mental status: Baseline
== END 2024-05-24 11:58 | disposition home or self-care (01) ==
PROVIDERS: PCP Family Medicine; Visit Provider Surgery
DX: K22.2 Esophageal obstruction (principal); K29.30 Chronic superficial gastritis without bleeding; Z87.891 Personal history of nicotine dependence; G47.33 Obstructive sleep apnea (adult) (pediatric); K21.9 Gastro-esophageal reflux disease without esophagitis; E11.9 Type 2 diabetes mellitus without complications; Z79.899 Other long term (current) drug therapy; I10 Essential (primary) hypertension; E78.5 Hyperlipidemia, unspecified; G31.09 Other frontotemporal neurocognitive disorder; F02.80 Dementia in other diseases classified elsewhere, unspecified severity, without behavioral disturbance, psychotic disturbance, mood disturbance, and anxiety; Z79.84 Long term (current) use of oral hypoglycemic drugs; Z88.8 Allergy status to other drugs, medicaments and biological substances
CPT/HCPCS: 36416; 43239; 43249; 82962; 88305; 88342; J2704; J7050; J9999

== ENCOUNTER → 2024-06-07 10:06 | Outpatient (BNVA) | payer MEDICARE, SELFPAY | PROVIDERS: PCP Family Medicine; Visit Provider Surgery | DX: Z09 Encounter for follow-up examination after completed treatment for conditions other than malignant neoplasm (principal) | CPT/HCPCS: 99213 ==

== ENCOUNTER 2024-07-06 10:20 | Outpatient (CLI) | payer MEDICARE, SELFPAY | END 2024-07-06 10:21 | disposition home or self-care (01) | PROVIDERS: PCP Family Medicine; Visit Provider Surgery | DX: K29.70 Gastritis, unspecified, without bleeding (principal); B96.81 Helicobacter pylori [H. pylori] as the cause of diseases classified elsewhere | CPT/HCPCS: 87338 ==

== ENCOUNTER 2024-09-01 11:13 | Outpatient (CLI) | payer MEDICARE, SELFPAY | END 2024-09-01 11:14 | disposition home or self-care (01) | PROVIDERS: PCP Family Medicine; Visit Provider Internal Medicine | DX: A04.8 Other specified bacterial intestinal infections (principal) | CPT/HCPCS: 87338 ==

== ENCOUNTER → 2024-12-14 07:15 | Outpatient (BNVA) | payer MEDICARE, SELFPAY | PROVIDERS: PCP Family Medicine; Visit Provider Family Medicine | DX: F32.A Depression, unspecified (principal); I10 Essential (primary) hypertension; E78.5 Hyperlipidemia, unspecified; E11.9 Type 2 diabetes mellitus without complications | CPT/HCPCS: 80053; 80061; 83036 ==